=== PATIENT | female | born 1990 | race Caucasian/White ===

== ENCOUNTER 2019-11-27 07:26 | Inpatient (IN) ==
[2019-11-27] MEDS ORDERED: OXYTOCIN 30 UNITS/500 ML BAG IV PRN ×3 (07:51→21:03)
[2019-11-27 08:37] LABS: Hematocrit (blood only) 35.2 % (37-47); Hemoglobin 11.8 g/dL (12.0-16.0); Mean Corpuscular Hemoglobin 30.9 pg (25-34); Mean Corpuscular Volume 92.1 fL (80-100); Mean Platelet Volume 11.4 fL (7.4-10.4); Platelet Count 273 K/uL (130-400); RDW Coefficient of Variation 14.1 % (11.5-14.5); RDW Standard Deviation 46.9 fL (36.4-46.3); Red Blood Count 3.82 M/uL (4.2-5.4); White Blood Count 10.27 K/uL (4.8-10.8)
[2019-11-27 08:38] LABS: Mean Corpuscular Hgb Conc 33.5 g/dL (32-36)
[2019-11-27] MEDS: LACTATED RINGER'S 1,000 ML IV PRN ×3 (09:24→17:31)
--- NOTE | 2019-11-27 11:58 | History & Physical Report ---
Date of Service November 27, 2019 Assessment & Plan (1) Encounter for induction of labor: Admission and Anticipated Discharge Date Admission Date: November 27, 2019 IUP at 40+ weeks presents for continuation of IOL excellent results from cervical balloon start pitocin induction AROM when regular contraction pattern obtained. plan epidural when appropriate, anticipate vaginal History of Present Illness Primary Care Provider: NO PCP Patient is a 29 yo white female EDC 11/20/19 who presents for IOL because of post term . She had a cervical balloon insertion last night which fell out at 0130. some bloody show and cramping. no SPROM. otherwise is uncomplicated. GBS negative. COVID negative. Allergies Allergy/AdvReac Type Severity Reaction Status Date / Time No Known Allergies Allergy Verified 11/27/19 07:38 Home Medications Home Medications Medication Instructions Recorded Confirmed Type vit-iron fum-folic ac 1 tab PO DAILY 08/20/19 11/27/19 History [ Vitamin] breast pump #1 ea 10/30/19 11/26/19 Rx Patient History Medical History Anxiety Bipolar disorder Hx of migraines Varicella vaccination Surgical History S/P appendectomy S/P wisdom tooth extraction Family History Mother Diabetes Father Hypertension Grandmother (Maternal) Breast cancer Kidney stone Social History Smoking Status: Never smoker Second Hand Exposure: No; Hx Alcohol Use: No Hx Substance Use: No Preferred Language: Lao Communication Ability: Effective [employer] Supervisor Required: No Beliefs That Will Affect Care: None marital status: marital status details: Michelle West (26) [phone] Current Living Situation: Spouse Current Living Situation Comment: lives with spouse, cats-spouse changing litter current occupational status: employed current occupation: [employer] Other Information That Helps Us Care for You: No Feels Safe at Home: Yes Safety Concerns: Feels Safe At This Time Assistive Devices: None Review of Systems All systems reviewed & are unremarkable except as noted in HPI & below Physical Exam Constitutional: WD/WN, vitals as above Respiratory: normal respiratory effort, lungs clear to auscultation Cardiovascular: RRR, no murmur, no edema Psychiatric: A+Ox3, euthymic affect Genitourinary: OB Exam Abdomen: + vertex and + estimated weight (7-8 pounds) Manual OB Exam: + cervical dilation 5 cm, + cervical effacement 80% and + station -1 OB Exam Monitor Tracing: + external FHT monitor used, + external uterine monitor used and + normal FHT variability Results & Data ([facility]) Vital Signs (Past 12 Hours) Vital Signs Temp Pulse Resp BP 11/27/19 11:30 98.2 F 89 20 133/78 11/27/19 10:30 83 124/78 11/27/19 09:21 96 H 115/71 11/27/19 07:34 98.2 F 95 H 20 138/75 Coding Level of Care Code None Diagnoses Encounter for induction of labor Z34.90
[2019-11-27] MEDS ORDERED: BUPIVACAINE 0.25% 30 ML VIAL ONE (16:36)
[2019-11-27] MEDS ORDERED: SODIUM CHLORIDE 0.9% INJ 10 ML VIAL ONE (16:36)
[2019-11-27] MEDS ORDERED: ePHEDrine sulfate 50 MG/ML AMP ONE (16:36)
[2019-11-27] MEDS ORDERED: fentaNYL citrate 100 MCG/2 ML VIAL ONE (16:36)
[2019-11-27] MEDS ORDERED: fentaNYL 2MCG/ML ROPIVACAINE 1.25MG/ML 100 ML BAG EPI ONE (16:37)
--- NOTE | 2019-11-27 17:06 | Anesthesiology Consultation ---
Date of Service November 27, 2019 Assessment & Plan (1) Encounter for pre-operative examination: Chart Review Chart Review: Acceptable Risk for Labor Epidural History Height/Weight Height: 5 ft 7 in Weight: 133.356 kg Allergies Allergy/AdvReac Type Severity Reaction Status Date / Time No Known Allergies Allergy Verified 11/27/19 07:38 Medications Home Medications Medication Instructions Recorded Confirmed Last Taken vit-iron fum-folic ac 1 tab PO DAILY 08/20/19 11/27/19 11/23/19 21:00 [ Vitamin] breast pump #1 ea 10/30/19 11/26/19 Unknown Active Medications Generic Name Dose Route Start Last Admin Trade Name Freq PRN Reason Stop Dose Admin Lactated Ringer's 1,000 mls @ 125 mls/hr 11/27/19 07:51 11/27/19 16:30 Lr IV 11/29/19 07:50 999 mls/hr .Q8H PRN Infusion L&D Protocol Protocol Oxytocin 30 units in 500 mls @ 13 mls/hr 11/27/19 09:07 11/27/19 15:00 Pitocin IV 11/29/19 09:06 0.78 units/hr .Q24H PRN 13 mls/hr Labor Induction/Augmentation Titration Protocol 0.78 UNITS/HR Past Medical History Medical History (Updated 11/27/19 @ 17:05 by Jose Clement MD) Anxiety Bipolar disorder Hx of migraines Obese Varicella vaccination Past Family History Family History Mother Diabetes Father Hypertension Grandmother (Maternal) Breast cancer Kidney stone Past Surgical History Surgical History S/P appendectomy S/P wisdom tooth extraction Social History Smoking Status: Never smoker tobacco type: e-cigarettes Hx Alcohol Use: No Hx Substance Use: No substance use type: marijuana Substance Use Type Other:: MEDICAL MARIJUANA CARD X 1 YEAR Last Used Substance: Days (ago) Last Used Substance Other:: medical marijuana stopped at 30 weeks; used for anxiety Physical Exam Vital Signs Last Vital Signs Temp 36.6 C 11/27/19 17:00 Pulse 79 11/27/19 16:59 Resp 20 11/27/19 17:00 BP 137/58 L 11/27/19 16:44 Pulse Ox 99 11/27/19 16:59 Testing Laboratory Results 11/27/19 08:12
[2019-11-27] MEDS ORDERED: NALOXONE HCL 1 MG in SODIUM CHLORIDE 0.9% 1000ML 1,000 ML IV PRN (17:27)
[2019-11-27] MEDS ORDERED: ONDANSETRON INJ 2 MG/ML 2 ML VIAL IV PRN (17:27)
[2019-11-27] MEDS ORDERED: fentaNYL 2MCG/ML ROPIVACAINE 1.25MG/ML 100 ML BAG EPI PRN (17:27)
[2019-11-27] MEDS ORDERED: NALOXONE HCL 0.4 MG/1 ML VIAL/CARP IV PRN (17:27)
[2019-11-27] MEDS ORDERED: ePHEDrine sulfate 50 MG/ML AMP IV PRN (17:27)
[2019-11-27] MEDS ORDERED: ACETAMINOPHEN 325 MG TAB PO PRN (21:03)
[2019-11-27] MEDS ORDERED: BENZOCAINE 20% AER SPR 82.5 GM CAN EXT PRN (21:03)
[2019-11-27] MEDS ORDERED: SUPERCREAM 0.870% 15 GM JAR EXT PRN (21:03)
[2019-11-27] MEDS ORDERED: HYDROCORTISONE ACETATE 25 MG SUPP PR PRN (21:03)
[2019-11-27] MEDS ORDERED: oxyCODONE/ACETAMINOPHEN 5mg/325mg TAB PO PRN (21:03)
[2019-11-27] MEDS ORDERED: DIPHTHERIA/TETANUS/PERTUSSIS 0.5 ML SYR/VIAL IM ONE (21:03)
[2019-11-27] MEDS: IBUPROFEN 600 MG TAB PO PRN (22:36)
--- NOTE | 2019-11-27 23:42 | Delivery Summary ---
Vaginal Delivery Summary Date of Service November 27, 2019 Patient is a 29-year-old G1, P0 white female who presented for postterm pregnanc y induction. She received a cervical balloon the night prior to her induction. Upon representation in labor and delivery, she was noted to be 5 cm dilated. Pitocin was begun and contractions became more regular at which time her membranes ruptured spontaneously for clear fluid. She received effective epidural analgesia and progressed to full dilation. She pushed effectively over intact perineum for delivery of a viable female infant. The delivered easily and was placed on the mother's abdomen for further attention and drying. There was vigorous crying and the infant was moving all 4 limbs. After 1 minute the cord was clamped and cut, and the placenta was expressed intact with a three-vessel cord. bleeding was controlled with dilute Pitocin. A second-degree perineal laceration was repaired with 3-0 chromic in the usual fashion. Estimated blood loss was 400 cc. Mother and were doing well after delivery. [facility] [place] Vaginal Delivery Charge Vaginal Delivery Codes: 66128 global code for the antepartum, delivery, and post-
[2019-11-28] MEDS: IBUPROFEN 600 MG TAB PO PRN ×3 (04:34→15:41)
[2019-11-28 06:44] LABS: Hematocrit (blood only) 31.8 % (37-47); Hemoglobin 10.4 g/dL (12.0-16.0); Mean Corpuscular Hemoglobin 30.1 pg (25-34); Mean Corpuscular Hgb Conc 32.7 g/dL (32-36); Mean Corpuscular Volume 91.9 fL (80-100); Platelet Count 239 K/uL (130-400); RDW Coefficient of Variation 14.4 % (11.5-14.5); Red Blood Count 3.46 M/uL (4.2-5.4); White Blood Count 17.07 K/uL (4.8-10.8)
--- NOTE | 2019-11-28 07:48 | Obstetrical Progress Note ---
Date of Service November 28, 2019 Assessment & Plan (1) Encounter for care and examination after delivery: satisfactory progress continue current care plan Subjective Ambulation: ambulating normally Voiding: no voiding problems Diet Tolerance:: regular diet Feeding Type:: breast feeding Physical Exam Constitutional WD/WN, vitals as above Psychiatric A+Ox3, euthymic affect Genitourinary OB Exam Abdomen: + fundal height Fundus: + firm and + relation to umbilicus (at U) Results & Data ([facility]) Vital Signs (Past 12 Hours) Vital Signs Temp Pulse Pulse Resp BP BP Pulse Ox 11/28/19 04:30 98.2 F 97 H 18 105/71 97 11/27/19 23:30 98.6 F 101 H 18 118/74 97 11/27/19 23:05 91 H 120/63 20 23:00 18 2020 22:39 102 H 121/65 20 22:30 18 20 22:00 18 20 21:56 104 H 115/67 2020 21:45 18 2020 21:41 103 H 104/73 2020 21:30 18 20/20 21:26 95 H 101/63 20/20 21:21 93 H 130/61 20/20 21:15 18 20 21:00 109 H 96 20/20 20:56 90 113/56 L 20/20 20:55 88 96 20/20 20:50 90 96 2020 20:45 103 H 18 97 20/20 20:43 89 87 L 20/20 20:41 91 H 137/60 1020/20 20:40 101 H 97 20/20 20:35 116 H 83 L 20/20 20:34 89 95 20/20 20:30 18 20/20 20:29 87 97 20/20 20:26 82 135/62 1020/20 20:24 83 99 20/20 20:19 75 96 20/20 20:14 72 97 20/20 20:11 78 141/77 H 20/20 20:09 76 97 20/20 20:04 73 98 10/20/20 19:59 79 95 11/27/19 19:56 69 143/81 H 11/27/19 19:54 74 98 11/27/19 19:49 76 98
--- NOTE | 2019-11-28 08:46 | Anesthesiology Progress Note ---
Date of Service November 28, 2019 Anesthesia Post Procedure Vital Signs Vital Signs: Temp Pulse Pulse Resp BP BP Pulse Ox 11/28/19 07:56 36.7 C 90 18 122/79 98 21/20 04:30 36.8 C 97 H 18 105/71 97 1020/20 23:30 37.0 C 101 H 18 118/74 97 1020/20 23:05 91 H 120/63 1020/20 23:00 18 1020/20 22:39 102 H 121/65 1020/20 22:30 18 1020/20 22:00 18 1020/20 21:56 104 H 115/67 1020/20 21:45 18 1020/20 21:41 103 H 104/73 20/20 21:30 18 1020/20 21:26 95 H 101/63 1020/20 21:21 93 H 130/61 1020/20 21:15 18 1020/20 21:00 109 H 96 1020/20 20:56 90 113/56 L 1020/20 20:55 88 96 1020/20 20:50 90 96 1020/20 20:45 103 H 18 97 1020/20 20:43 89 87 L 1020/20 20:41 91 H 137/60 1020/20 20:40 101 H 97 1020/20 20:35 116 H 83 L 10/20/20 20:34 89 95 1020/20 20:30 18 1020/20 20:29 87 97 1020/20 20:26 82 135/62 10/20/20 20:24 83 99 10/20/20 20:19 75 96 10/20/20 20:14 72 97 10/20/20 20:11 78 141/77 H 1020/20 20:09 76 97 10/20/20 20:04 73 98 10/20/20 19:59 79 95 10/20/20 19:56 69 143/81 H 1020/20 19:54 74 98 10/20/20 19:49 76 98 10/20/20 19:44 76 96 10/20/20 19:42 76 138/76 10/20/20 19:39 78 96 10/20/20 19:34 75 95 10/20/20 19:29 75 95 10/20/20 19:26 74 134/76 10/20/20 19:24 74 96 10/20/20 19:19 72 96 10/20/20 19:14 71 96 10/20/20 19:11 80 128/67 10/20/20 19:09 85 95 10/20/20 19:04 76 97 10/20/20 19:02 36.8 C 18 10/20/20 18:59 71 96 10/20/20 18:56 68 125/66 10/20/20 18:54 73 96 10/20/20 18:49 74 96 10/20/20 18:44 71 97 10/20/20 18:41 74 123/67 10/20/20 18:39 67 98 10/20/20 18:34 104 H 97 10/20/20 18:30 20 10/20/20 18:29 78 97 10/20/20 18:27 69 137/73 10/20/20 18:24 75 97 10/20/20 18:19 79 97 10/20/20 18:14 77 97 10/20/20 18:12 73 132/68 10/20/20 18:09 81 98 10/20/20 18:04 78 98 10/20/20 18:00 20 10/20/20 17:59 76 97 10/20/20 17:57 76 128/64 10/20/20 17:54 77 96 10/20/20 17:49 74 95 10/20/20 17:48 76 94 10/20/20 17:44 73 96 10/20/20 17:41 77 125/64 10/20/20 17:39 78 118/63 96 10/20/20 17:37 74 122/62 10/20/20 17:35 70 121/62 10/20/20 17:34 77 98 10/20/20 17:33 76 124/59 L 10/20/20 17:31 65 130/62 10/20/20 17:30 20 10/20/20 17:29 89 127/59 L 96 10/20/20 17:27 65 122/58 L 10/20/20 17:25 60 124/57 L 10/20/20 17:24 62 100 10/20/20 17:23 81 140/80 10/20/20 17:21 71 143/82 H 11/27/19 17:20 20 11/27/19 17:19 74 139/73 98 11/27/19 17:14 78 100 11/27/19 17:09 73 100 11/27/19 17:04 89 98 11/27/19 17:00 36.6 C 20 11/27/19 16:59 79 99 11/27/19 16:58 86 94 11/27/19 16:54 88 100 11/27/19 16:49 81 99 11/27/19 16:44 76 137/58 L 99 11/27/19 16:31 73 136/81 11/27/19 15:32 64 137/78 11/27/19 15:30 36.6 C 20 11/27/19 14:26 80 143/89 H 11/27/19 13:30 36.6 C 76 20 133/79 11/27/19 12:33 85 134/88 11/27/19 11:30 36.8 C 89 20 133/78 11/27/19 10:30 83 124/78 11/27/19 09:21 96 H 115/71 Pain Intensity Bilateral Abdomen: Pain Intensity: 2 Transfer of Care Handoff Completed per policy Notes Mental Status: alert / awake / arousable and participated in evaluation Patient Amnestic to Procedure: Yes Nausea / Vomiting: adequately controlled Pain: adequately controlled Airway Patency, RR, SpO2: stable & adequate BP & HR: stable & adequate Hydration State: stable & adequate Anesthetic Complications: no major complications apparent and Pt Satisfied with anesthetic care
[2019-11-28] MEDS: PRENATAL VITAMIN 1 TAB PO SCH (09:19)
[2019-11-28] MEDS: DOCUSATE SODIUM 100 MG CAP PO SCH ×2 (09:19→20:34)
[2019-11-28] MEDS ORDERED: bisacodyL 5 MG TABEC PO SCH (20:00)
[2019-11-29] MEDS: IBUPROFEN 600 MG TAB PO PRN ×2 (00:02→08:57)
[2019-11-29] MEDS ORDERED: bisacodyL 10 MG SUPP PR PRN (06:00)
[2019-11-29 06:28] LABS: Hematocrit (blood only) 32.1 % (37-47); Hemoglobin 10.3 g/dL (12.0-16.0)
--- NOTE | 2019-11-29 07:13 | Obstetrical Progress Note ---
Date of Service <Edy Foy MD - Last Filed: 11/29/19 08:08> November 29, 2019 Assessment & Plan <Edy Foy MD - Last Filed: 11/29/19 08:08> (1) : - PNL: Rh pos, RI, GBS neg, COVID neg - Feels well today. Eating well, voiding well, ambulating well - Pain well controlled with ibuprofen 600mg Q4H PRN - Routine care -- OOB, ambulation, diet progression as tolerated - After discharge will have 6 week follow-up with Dr. Bunn - Plan for discharge today Day #:: 2 Subjective <Edy Foy MD - Last Filed: 11/29/19 08:08> Abby is a 29 y/o female who is PPD #2 following at 40+ weeks. She reports feeling well overall this morning. Light abdominal cramping and 2/10 pain well managed on analgesics. Voiding well. Tolerating meals overnight without difficulty. Patient has been able to ambulate some. Has persistent lochia with some improvement this morning. Currently . Review of Systems Denies fever or chills. Denies shortness of breath or cough. Denies chest pain. Denies breast pain. Denies dysuria. Denies leg pain or leg swelling. Denies headache or changes in vision. Physical Exam <Edy Foy MD - Last Filed: 11/29/19 08:08> General: Alert, oriented. No acute distress. Cardiac: Regular rate and rhythm. No murmurs. Respiratory: Clear to auscultation bilaterally a/p, no wheezes/rales/rhonchi. No increased work of breathing. Symmetrical chest rise. No respiratory distress. Abdomen: Soft, nontender, nondistended. Bowel sounds present. Uterus: Uterine fundus firm, palpable 2 cm below umbilicus. Lower Extremities: No lower extremity edema or swelling. No deep calf pain. Angelito's negative bilaterally. Results & Data ([facility]) <Edy Foy MD - Last Filed: 11/29/19 08:08> Vital Signs (Past 12 Hours) Vital Signs Temp Pulse Resp BP 11/28/19 23:55 37.2 C 90 18 116/77 11/28/19 20:30 37.1 C 96 H 16 121/73 <Brenda Sheth MD, FACOG - Last Filed: 11/29/19 08:30> Co-Signing Physician Notes Resident Physician Supervision Note: I was present with Dr. Vasquez during the history and exam. I discussed the case with the resident and agree with the findings and plan as documented in the note. Any exceptions or clarifications are listed here: doing well, ready to go home. formula feeding. denies pain. eating and voiding without problem. ff 2 down nt. instructions reviewed. Documented By: Brenda Sheth MD, FACOG Resident Activity Tracking <Edy Foy MD - Last Filed: 11/29/19 08:08> Resident Involvement: Resident Care Provided Care Provided: OB Delivery
[2019-11-29] MEDS: DOCUSATE SODIUM 100 MG CAP PO SCH (08:57)
[2019-11-29] MEDS: PRENATAL VITAMIN 1 TAB PO SCH (08:57)
== END 2019-11-29 11:00 | disposition home or self-care (01) | DRG 807 ==
LOC: 4S1 07:26 → 4S2 23:58